=== PATIENT | female | born 1980 | race Caucasian/White ===

== ENCOUNTER 2019-11-12 16:16 | Outpatient (BNVA) | payer MEDICAID, SELFPAY | END 2019-11-12 17:00 | PROVIDERS: Family Provider Family Medicine; PCP Family Medicine; Visit Provider Social Worker Clinical | DX: F40.01 Agoraphobia with panic disorder (principal); F43.12 Post-traumatic stress disorder, chronic | CPT/HCPCS: 90834 ==

== ENCOUNTER → 2019-12-04 16:45 | Outpatient (BNVA) | payer MEDICAID, SELFPAY | PROVIDERS: Family Provider Family Medicine; PCP Family Medicine; Visit Provider Nurse Practitioner | DX: J02.9 Acute pharyngitis, unspecified (principal) | CPT/HCPCS: 87081; 87880 ==

== ENCOUNTER → 2019-12-05 15:15 | Outpatient (BNVA) | payer MEDICAID, SELFPAY | PROVIDERS: Family Provider Family Medicine; PCP Family Medicine; Visit Provider Social Worker Clinical | DX: F40.01 Agoraphobia with panic disorder (principal); F43.12 Post-traumatic stress disorder, chronic | CPT/HCPCS: 90834 ==

== ENCOUNTER 2019-12-25 11:35 | Outpatient (CLI) | payer MEDICAID, SELFPAY ==
--- NOTE | 2019-12-25 11:45 | XRR_ITS ---
PROCEDURE INFORMATION: Exam: XR Lumbosacral Spine, 2 or 3 Views Exam date and time: 12/25/2019 12:25 PM Age: 39 years old Clinical indication: Low back pain; Additional info: Chronic low back pain TECHNIQUE: Imaging protocol: XR of the lumbosacral spine, 2 or 3 views. COMPARISON: No relevant prior studies available. FINDINGS: Vertebrae: Normal. No acute fracture. Normal alignment. Disc heights well maintained. Soft tissues: Normal. XR/XR lumbar spine 2-3V* [id number] IMPRESSION: Negative lumbar spine x-rays.
== END 2019-12-25 11:36 | disposition home or self-care (01) ==
LOC: RAD 11:41
PROVIDERS: Family Provider Family Medicine; PCP Family Medicine; Visit Provider Family Medicine
DX: M54.5 Low back pain (principal); G89.29 Other chronic pain
CPT/HCPCS: 72100

== ENCOUNTER → 2020-01-03 14:57 | Outpatient (BNVA) | payer MEDICAID, SELFPAY | PROVIDERS: Family Provider Family Medicine; PCP Family Medicine; Visit Provider Nurse Practitioner Psychiatric/Mental Health | DX: F43.12 Post-traumatic stress disorder, chronic (principal); F40.01 Agoraphobia with panic disorder; F17.210 Nicotine dependence, cigarettes, uncomplicated | CPT/HCPCS: 99214 ==

== ENCOUNTER → 2020-01-31 07:30 | Outpatient (BNVA) | payer MEDICAID, SELFPAY | PROVIDERS: Family Provider Family Medicine; PCP Family Medicine; Visit Provider Nurse Practitioner Psychiatric/Mental Health | DX: F43.12 Post-traumatic stress disorder, chronic (principal); F40.01 Agoraphobia with panic disorder; F17.210 Nicotine dependence, cigarettes, uncomplicated | CPT/HCPCS: 99213 ==

== ENCOUNTER → 2020-02-03 09:40 | Outpatient (BNVA) | payer MEDICAID, SELFPAY | PROVIDERS: Family Provider Family Medicine; PCP Family Medicine; Visit Provider Counselor Professional | DX: F40.01 Agoraphobia with panic disorder (principal); F43.12 Post-traumatic stress disorder, chronic; F17.210 Nicotine dependence, cigarettes, uncomplicated | CPT/HCPCS: 90834 ==

== ENCOUNTER → 2020-02-13 08:17 | Outpatient (BNVA) | payer MEDICAID, SELFPAY | PROVIDERS: Family Provider Family Medicine; PCP Family Medicine; Visit Provider Counselor Professional | DX: F17.210 Nicotine dependence, cigarettes, uncomplicated (principal); F40.01 Agoraphobia with panic disorder; F43.12 Post-traumatic stress disorder, chronic | CPT/HCPCS: 90834 ==

== ENCOUNTER → 2020-02-26 08:28 | Outpatient (BNVA) | payer MEDICAID, SELFPAY | PROVIDERS: Family Provider Family Medicine; PCP Family Medicine; Visit Provider Counselor Professional | DX: F17.210 Nicotine dependence, cigarettes, uncomplicated (principal); F40.01 Agoraphobia with panic disorder; F43.12 Post-traumatic stress disorder, chronic | CPT/HCPCS: 90834 ==

== ENCOUNTER → 2020-03-05 08:55 | Outpatient (BNVA) | payer MEDICAID, SELFPAY | PROVIDERS: Family Provider Family Medicine; PCP Family Medicine; Visit Provider Counselor Professional | DX: F17.210 Nicotine dependence, cigarettes, uncomplicated (principal); F40.01 Agoraphobia with panic disorder; F43.12 Post-traumatic stress disorder, chronic | CPT/HCPCS: 90834 ==

== ENCOUNTER → 2020-03-19 08:33 | Outpatient (BNVA) | payer MEDICAID, SELFPAY | PROVIDERS: Family Provider Family Medicine; PCP Family Medicine; Visit Provider Counselor Professional | DX: F17.210 Nicotine dependence, cigarettes, uncomplicated (principal); F40.01 Agoraphobia with panic disorder; F43.12 Post-traumatic stress disorder, chronic | CPT/HCPCS: 90834 ==

== ENCOUNTER → 2020-03-31 08:51 | Outpatient (BNVA) | payer MEDICAID, SELFPAY | PROVIDERS: Family Provider Family Medicine; PCP Family Medicine; Visit Provider Counselor Professional | DX: F40.01 Agoraphobia with panic disorder (principal); F43.12 Post-traumatic stress disorder, chronic | CPT/HCPCS: 90834 ==

== ENCOUNTER → 2020-04-06 09:47 | Outpatient (BNVA) | payer MEDICAID, SELFPAY | PROVIDERS: Family Provider Family Medicine; PCP Family Medicine; Visit Provider Counselor Professional | DX: F17.210 Nicotine dependence, cigarettes, uncomplicated (principal); F40.01 Agoraphobia with panic disorder; F43.12 Post-traumatic stress disorder, chronic | CPT/HCPCS: 90834 ==

== ENCOUNTER → 2020-04-13 08:08 | Outpatient (BNVA) | payer MEDICAID, SELFPAY | PROVIDERS: Family Provider Family Medicine; PCP Family Medicine; Visit Provider Counselor Professional | DX: F40.01 Agoraphobia with panic disorder (principal); F43.12 Post-traumatic stress disorder, chronic | CPT/HCPCS: 90834 ==

== ENCOUNTER → 2020-04-23 14:42 | Outpatient (BNVA) | payer MEDICAID, SELFPAY | PROVIDERS: Family Provider Family Medicine; PCP Family Medicine; Visit Provider Counselor Professional | DX: F43.12 Post-traumatic stress disorder, chronic (principal); F40.01 Agoraphobia with panic disorder; F17.210 Nicotine dependence, cigarettes, uncomplicated | CPT/HCPCS: 90834 ==

== ENCOUNTER → 2020-04-24 08:27 | Outpatient (BNVA) | payer MEDICAID, SELFPAY | PROVIDERS: Family Provider Family Medicine; PCP Family Medicine; Visit Provider Nurse Practitioner Psychiatric/Mental Health | DX: F43.12 Post-traumatic stress disorder, chronic (principal); F40.01 Agoraphobia with panic disorder; F17.210 Nicotine dependence, cigarettes, uncomplicated; F33.1 Major depressive disorder, recurrent, moderate | CPT/HCPCS: 99214 ==

== ENCOUNTER → 2020-04-29 08:17 | Outpatient (BNVA) | payer MEDICAID, SELFPAY | PROVIDERS: Family Provider Family Medicine; PCP Family Medicine; Visit Provider Counselor Professional | DX: F17.210 Nicotine dependence, cigarettes, uncomplicated (principal); F40.01 Agoraphobia with panic disorder; F43.12 Post-traumatic stress disorder, chronic | CPT/HCPCS: 90832 ==

== ENCOUNTER → 2020-05-26 08:19 | Outpatient (BNVA) | payer MEDICAID, SELFPAY | PROVIDERS: Family Provider Family Medicine; PCP Family Medicine; Visit Provider Counselor Professional | DX: F17.210 Nicotine dependence, cigarettes, uncomplicated (principal); F40.01 Agoraphobia with panic disorder; F43.12 Post-traumatic stress disorder, chronic | CPT/HCPCS: 90834 ==

== ENCOUNTER → 2020-05-29 07:37 | Outpatient (BNVA) | payer MEDICAID, SELFPAY | PROVIDERS: Family Provider Family Medicine; PCP Family Medicine; Visit Provider Nurse Practitioner Psychiatric/Mental Health | DX: F43.12 Post-traumatic stress disorder, chronic (principal); F40.01 Agoraphobia with panic disorder; F17.210 Nicotine dependence, cigarettes, uncomplicated | CPT/HCPCS: 99214 ==

== ENCOUNTER → 2020-06-15 09:26 | Outpatient (BNVA) | payer MEDICAID, SELFPAY | PROVIDERS: Family Provider Family Medicine; PCP Family Medicine; Visit Provider Counselor Professional | DX: F17.210 Nicotine dependence, cigarettes, uncomplicated (principal); F40.01 Agoraphobia with panic disorder; F43.12 Post-traumatic stress disorder, chronic | CPT/HCPCS: 90834 ==

== ENCOUNTER → 2020-06-29 10:32 | Outpatient (BNVA) | payer MEDICAID, SELFPAY | PROVIDERS: Family Provider Family Medicine; PCP Family Medicine; Visit Provider Counselor Professional | DX: F43.12 Post-traumatic stress disorder, chronic (principal); F17.210 Nicotine dependence, cigarettes, uncomplicated; F40.01 Agoraphobia with panic disorder | CPT/HCPCS: 90832 ==

== ENCOUNTER → 2020-07-17 08:16 | Outpatient (BNVA) | payer MEDICAID, SELFPAY | PROVIDERS: Family Provider Family Medicine; PCP Family Medicine; Visit Provider Nurse Practitioner Psychiatric/Mental Health | DX: F43.12 Post-traumatic stress disorder, chronic (principal); F40.01 Agoraphobia with panic disorder; F17.210 Nicotine dependence, cigarettes, uncomplicated | CPT/HCPCS: 99213 ==

== ENCOUNTER → 2020-07-21 08:51 | Outpatient (BNVA) | payer MEDICAID, SELFPAY | PROVIDERS: Family Provider Family Medicine; PCP Family Medicine; Visit Provider Counselor Professional | DX: F43.12 Post-traumatic stress disorder, chronic (principal); F40.01 Agoraphobia with panic disorder; F17.210 Nicotine dependence, cigarettes, uncomplicated | CPT/HCPCS: 90834 ==

== ENCOUNTER → 2020-08-11 08:39 | Outpatient (BNVA) | payer MEDICAID, SELFPAY | PROVIDERS: Family Provider Family Medicine; PCP Family Medicine; Visit Provider Counselor Professional | DX: F17.210 Nicotine dependence, cigarettes, uncomplicated (principal); F40.01 Agoraphobia with panic disorder; F43.12 Post-traumatic stress disorder, chronic | CPT/HCPCS: 90834 ==

== ENCOUNTER → 2020-09-01 08:29 | Outpatient (BNVA) | payer MEDICAID, SELFPAY | PROVIDERS: Family Provider Family Medicine; PCP Family Medicine; Visit Provider Counselor Professional | DX: F43.12 Post-traumatic stress disorder, chronic (principal); F40.01 Agoraphobia with panic disorder; F17.210 Nicotine dependence, cigarettes, uncomplicated | CPT/HCPCS: 90834 ==

== ENCOUNTER → 2020-09-16 08:31 | Outpatient (BNVA) | payer MEDICAID, SELFPAY | PROVIDERS: Family Provider Family Medicine; PCP Family Medicine; Visit Provider Counselor Professional | DX: F43.12 Post-traumatic stress disorder, chronic (principal); F40.01 Agoraphobia with panic disorder; F17.210 Nicotine dependence, cigarettes, uncomplicated | CPT/HCPCS: 90832 ==

== ENCOUNTER → 2020-09-28 08:44 | Outpatient (BNVA) | payer MEDICAID, SELFPAY | PROVIDERS: Family Provider Family Medicine; PCP Family Medicine; Visit Provider Counselor Professional | DX: F43.12 Post-traumatic stress disorder, chronic (principal); F40.01 Agoraphobia with panic disorder | CPT/HCPCS: 90832 ==

== ENCOUNTER → 2020-10-09 09:29 | Outpatient (BNVA) | payer MEDICAID, SELFPAY | PROVIDERS: Family Provider Family Medicine; PCP Family Medicine; Visit Provider Nurse Practitioner Psychiatric/Mental Health | DX: F43.12 Post-traumatic stress disorder, chronic (principal); F40.01 Agoraphobia with panic disorder; F17.210 Nicotine dependence, cigarettes, uncomplicated | CPT/HCPCS: 99213 ==

== ENCOUNTER → 2020-10-20 14:45 | Outpatient (BNVA) | payer MEDICAID, SELFPAY | PROVIDERS: Family Provider Family Medicine; PCP Family Medicine; Visit Provider Counselor Professional | DX: F43.12 Post-traumatic stress disorder, chronic (principal); F40.01 Agoraphobia with panic disorder; F17.210 Nicotine dependence, cigarettes, uncomplicated | CPT/HCPCS: 90834 ==

== ENCOUNTER → 2020-11-10 09:25 | Outpatient (BNVA) | payer MEDICAID, SELFPAY | PROVIDERS: Family Provider Family Medicine; PCP Family Medicine; Visit Provider Counselor Professional | DX: F40.01 Agoraphobia with panic disorder; F43.12 Post-traumatic stress disorder, chronic; F17.210 Nicotine dependence, cigarettes, uncomplicated | CPT/HCPCS: 90834 ==

== ENCOUNTER → 2020-12-09 08:20 | Outpatient (BNVA) | payer MEDICAID, SELFPAY | PROVIDERS: Family Provider Family Medicine; PCP Family Medicine; Visit Provider Nurse Practitioner Psychiatric/Mental Health | DX: F43.12 Post-traumatic stress disorder, chronic (principal); F40.01 Agoraphobia with panic disorder; F17.210 Nicotine dependence, cigarettes, uncomplicated | CPT/HCPCS: 99214 ==

== ENCOUNTER → 2020-12-16 08:04 | Outpatient (BNVA) | payer MEDICAID, SELFPAY | PROVIDERS: Family Provider Family Medicine; PCP Family Medicine; Visit Provider Counselor Professional | DX: F43.12 Post-traumatic stress disorder, chronic (principal); F40.01 Agoraphobia with panic disorder; F17.210 Nicotine dependence, cigarettes, uncomplicated | CPT/HCPCS: 90834 ==

== ENCOUNTER → 2020-12-30 08:32 | Outpatient (BNVA) | payer MEDICAID, SELFPAY | PROVIDERS: Family Provider Family Medicine; PCP Family Medicine; Visit Provider Counselor Professional | DX: F43.12 Post-traumatic stress disorder, chronic (principal); F40.01 Agoraphobia with panic disorder; F17.210 Nicotine dependence, cigarettes, uncomplicated | CPT/HCPCS: 90832 ==

== ENCOUNTER → 2021-01-20 08:28 | Outpatient (BNVA) | payer MEDICAID, SELFPAY | PROVIDERS: Family Provider Family Medicine; PCP Family Medicine; Visit Provider Counselor Professional | DX: F43.12 Post-traumatic stress disorder, chronic (principal); F40.01 Agoraphobia with panic disorder; F17.210 Nicotine dependence, cigarettes, uncomplicated | CPT/HCPCS: 90832 ==

== ENCOUNTER → 2021-02-05 09:11 | Outpatient (BNVA) | payer MEDICAID, SELFPAY | PROVIDERS: Family Provider Family Medicine; PCP Family Medicine; Visit Provider Nurse Practitioner Psychiatric/Mental Health | DX: F43.12 Post-traumatic stress disorder, chronic (principal); F40.01 Agoraphobia with panic disorder; F17.210 Nicotine dependence, cigarettes, uncomplicated | CPT/HCPCS: 99214 ==

== ENCOUNTER → 2021-02-25 08:09 | Outpatient (BNVA) | payer MEDICAID, SELFPAY | PROVIDERS: Family Provider Family Medicine; PCP Family Medicine; Visit Provider Counselor Professional | DX: F43.12 Post-traumatic stress disorder, chronic (principal); F40.01 Agoraphobia with panic disorder; F17.210 Nicotine dependence, cigarettes, uncomplicated | CPT/HCPCS: 90832 ==

== ENCOUNTER → 2021-03-05 08:03 | Outpatient (BNVA) | payer MEDICAID, SELFPAY | PROVIDERS: Family Provider Family Medicine; PCP Family Medicine; Visit Provider Nurse Practitioner Psychiatric/Mental Health | DX: F43.12 Post-traumatic stress disorder, chronic (principal); F40.01 Agoraphobia with panic disorder; F17.210 Nicotine dependence, cigarettes, uncomplicated | CPT/HCPCS: 99214 ==

== ENCOUNTER → 2021-04-01 09:04 | Outpatient (BNVA) | payer MEDICAID, SELFPAY | PROVIDERS: Family Provider Family Medicine; PCP Family Medicine; Visit Provider Counselor Professional | DX: F43.12 Post-traumatic stress disorder, chronic (principal); F40.01 Agoraphobia with panic disorder; F17.210 Nicotine dependence, cigarettes, uncomplicated | CPT/HCPCS: 90834 ==

== ENCOUNTER → 2021-04-02 08:38 | Outpatient (BNVA) | payer MEDICAID, SELFPAY | PROVIDERS: Family Provider Family Medicine; PCP Family Medicine; Visit Provider Nurse Practitioner Psychiatric/Mental Health | DX: F43.12 Post-traumatic stress disorder, chronic (principal); F40.01 Agoraphobia with panic disorder; F17.210 Nicotine dependence, cigarettes, uncomplicated | CPT/HCPCS: 99214 ==

== ENCOUNTER → 2021-04-29 08:13 | Outpatient (BNVA) | payer MEDICAID, SELFPAY | PROVIDERS: Family Provider Family Medicine; PCP Family Medicine; Visit Provider Counselor Professional | DX: F43.12 Post-traumatic stress disorder, chronic (principal); F40.01 Agoraphobia with panic disorder; F17.200 Nicotine dependence, unspecified, uncomplicated | CPT/HCPCS: 90834 ==

== ENCOUNTER → 2021-05-04 07:47 | Outpatient (BNVA) | payer MEDICAID, SELFPAY | PROVIDERS: Family Provider Family Medicine; PCP Family Medicine; Visit Provider Nurse Practitioner Psychiatric/Mental Health | DX: F43.12 Post-traumatic stress disorder, chronic (principal); F40.01 Agoraphobia with panic disorder; F17.210 Nicotine dependence, cigarettes, uncomplicated | CPT/HCPCS: 99214 ==

== ENCOUNTER → 2021-05-17 07:31 | Outpatient (BNVA) | payer MEDICAID, SELFPAY | PROVIDERS: Family Provider Family Medicine; PCP Family Medicine; Visit Provider Counselor Professional | DX: F43.12 Post-traumatic stress disorder, chronic (principal); F40.01 Agoraphobia with panic disorder; F17.210 Nicotine dependence, cigarettes, uncomplicated | CPT/HCPCS: 90832 ==

== ENCOUNTER → 2021-06-04 07:30 | Outpatient (BNVA) | payer MEDICAID, SELFPAY | PROVIDERS: Family Provider Family Medicine; PCP Family Medicine; Visit Provider Counselor Professional | DX: F40.01 Agoraphobia with panic disorder (principal); F43.12 Post-traumatic stress disorder, chronic; F17.210 Nicotine dependence, cigarettes, uncomplicated | CPT/HCPCS: 90832 ==

== ENCOUNTER → 2021-07-06 07:51 | Outpatient (BNVA) | payer MEDICAID, SELFPAY | PROVIDERS: Family Provider Family Medicine; PCP Family Medicine; Visit Provider Counselor Professional | DX: F40.01 Agoraphobia with panic disorder (principal); F43.12 Post-traumatic stress disorder, chronic; F17.210 Nicotine dependence, cigarettes, uncomplicated | CPT/HCPCS: 90832 ==

== ENCOUNTER → 2021-07-12 08:20 | Outpatient (BNVA) | payer MEDICAID, SELFPAY | PROVIDERS: Family Provider Family Medicine; PCP Family Medicine; Visit Provider Counselor Professional | DX: F40.01 Agoraphobia with panic disorder (principal); F43.12 Post-traumatic stress disorder, chronic; F17.210 Nicotine dependence, cigarettes, uncomplicated | CPT/HCPCS: 90834 ==

== ENCOUNTER → 2021-07-19 08:26 | Outpatient (BNVA) | payer MEDICAID, SELFPAY | PROVIDERS: Family Provider Family Medicine; PCP Family Medicine; Visit Provider Counselor Professional | DX: F40.01 Agoraphobia with panic disorder (principal); F43.12 Post-traumatic stress disorder, chronic; F17.210 Nicotine dependence, cigarettes, uncomplicated | CPT/HCPCS: 90834 ==

== ENCOUNTER → 2021-07-27 07:50 | Outpatient (BNVA) | payer MEDICAID, SELFPAY | PROVIDERS: Family Provider Family Medicine; PCP Family Medicine; Visit Provider Nurse Practitioner Psychiatric/Mental Health | DX: F43.12 Post-traumatic stress disorder, chronic (principal); F40.01 Agoraphobia with panic disorder; F17.210 Nicotine dependence, cigarettes, uncomplicated | CPT/HCPCS: 99214 ==

== ENCOUNTER → 2021-08-04 07:34 | Outpatient (BNVA) | payer MEDICAID, SELFPAY | PROVIDERS: Family Provider Family Medicine; PCP Family Medicine; Visit Provider Counselor Professional | DX: F43.12 Post-traumatic stress disorder, chronic (principal); F40.01 Agoraphobia with panic disorder; F17.210 Nicotine dependence, cigarettes, uncomplicated | CPT/HCPCS: 90832 ==

== ENCOUNTER → 2021-08-18 07:51 | Outpatient (BNVA) | payer MEDICAID, SELFPAY | PROVIDERS: Family Provider Family Medicine; PCP Family Medicine; Visit Provider Counselor Professional | DX: F43.12 Post-traumatic stress disorder, chronic (principal); F40.01 Agoraphobia with panic disorder; F17.210 Nicotine dependence, cigarettes, uncomplicated | CPT/HCPCS: 90832 ==

== ENCOUNTER → 2021-09-09 07:37 | Outpatient (BNVA) | payer MEDICAID, SELFPAY | PROVIDERS: Family Provider Family Medicine; PCP Family Medicine; Visit Provider Counselor Professional | DX: F43.12 Post-traumatic stress disorder, chronic (principal); F17.210 Nicotine dependence, cigarettes, uncomplicated; F40.01 Agoraphobia with panic disorder | CPT/HCPCS: 90832 ==

== ENCOUNTER → 2021-09-14 07:58 | Outpatient (BNVA) | payer MEDICAID, SELFPAY | PROVIDERS: Family Provider Family Medicine; PCP Family Medicine; Visit Provider Nurse Practitioner Psychiatric/Mental Health | DX: F43.12 Post-traumatic stress disorder, chronic (principal); F40.01 Agoraphobia with panic disorder; F17.210 Nicotine dependence, cigarettes, uncomplicated | CPT/HCPCS: 99214 ==

== ENCOUNTER → 2021-10-06 07:45 | Outpatient (BNVA) | payer MEDICAID, SELFPAY | PROVIDERS: Family Provider Family Medicine; PCP Family Medicine; Visit Provider Counselor Professional | DX: F43.12 Post-traumatic stress disorder, chronic (principal); F17.210 Nicotine dependence, cigarettes, uncomplicated; F40.01 Agoraphobia with panic disorder | CPT/HCPCS: 90834 ==

== ENCOUNTER → 2021-10-19 08:25 | Outpatient (BNVA) | payer MEDICAID, SELFPAY | PROVIDERS: Family Provider Family Medicine; PCP Family Medicine; Visit Provider Nurse Practitioner Psychiatric/Mental Health | DX: F43.12 Post-traumatic stress disorder, chronic (principal); F40.01 Agoraphobia with panic disorder; F17.210 Nicotine dependence, cigarettes, uncomplicated | CPT/HCPCS: 99214 ==

== ENCOUNTER → 2021-10-27 07:59 | Outpatient (BNVA) | payer MEDICAID, SELFPAY | PROVIDERS: Family Provider Family Medicine; PCP Family Medicine; Visit Provider Counselor Professional | DX: F43.12 Post-traumatic stress disorder, chronic (principal); F40.01 Agoraphobia with panic disorder; F17.210 Nicotine dependence, cigarettes, uncomplicated | CPT/HCPCS: 90834 ==

== ENCOUNTER → 2021-11-17 08:02 | Outpatient (BNVA) | payer MEDICAID, SELFPAY | PROVIDERS: Family Provider Family Medicine; PCP Family Medicine; Visit Provider Counselor Professional | DX: F43.12 Post-traumatic stress disorder, chronic (principal); F40.01 Agoraphobia with panic disorder; F17.210 Nicotine dependence, cigarettes, uncomplicated | CPT/HCPCS: 90832 ==

== ENCOUNTER → 2021-12-07 08:13 | Outpatient (BNVA) | payer MEDICAID, SELFPAY | PROVIDERS: Family Provider Family Medicine; PCP Family Medicine; Visit Provider Nurse Practitioner Psychiatric/Mental Health | DX: F43.12 Post-traumatic stress disorder, chronic (principal); F40.01 Agoraphobia with panic disorder; F17.210 Nicotine dependence, cigarettes, uncomplicated | CPT/HCPCS: 99214 ==

== ENCOUNTER → 2021-12-13 09:22 | Outpatient (BNVA) | payer MEDICAID, SELFPAY | PROVIDERS: Family Provider Family Medicine; PCP Family Medicine; Visit Provider Counselor Professional | DX: F43.12 Post-traumatic stress disorder, chronic (principal); F40.01 Agoraphobia with panic disorder; F17.210 Nicotine dependence, cigarettes, uncomplicated | CPT/HCPCS: 90832 ==

== ENCOUNTER → 2022-01-10 08:35 | Outpatient (BNVA) | payer MEDICAID, SELFPAY | PROVIDERS: Family Provider Family Medicine; PCP Family Medicine; Visit Provider Counselor Professional | DX: F43.12 Post-traumatic stress disorder, chronic (principal); F40.01 Agoraphobia with panic disorder; F17.210 Nicotine dependence, cigarettes, uncomplicated | CPT/HCPCS: 90834 ==

== ENCOUNTER → 2022-02-01 15:32 | Outpatient (BNVA) | payer MEDICAID, SELFPAY | PROVIDERS: Family Provider Family Medicine; PCP Family Medicine; Visit Provider Nurse Practitioner Psychiatric/Mental Health | DX: F43.12 Post-traumatic stress disorder, chronic (principal); F40.01 Agoraphobia with panic disorder; F17.210 Nicotine dependence, cigarettes, uncomplicated | CPT/HCPCS: 99214 ==

== ENCOUNTER → 2022-02-03 08:16 | Outpatient (BNVA) | payer MEDICAID, SELFPAY | PROVIDERS: Family Provider Family Medicine; PCP Family Medicine; Visit Provider Counselor Professional | DX: F43.12 Post-traumatic stress disorder, chronic (principal); F40.01 Agoraphobia with panic disorder; F17.210 Nicotine dependence, cigarettes, uncomplicated | CPT/HCPCS: 90832 ==

== ENCOUNTER → 2022-03-17 07:27 | Outpatient (BNVA) | payer MEDICAID, SELFPAY | PROVIDERS: Family Provider Family Medicine; PCP Family Medicine; Visit Provider Counselor Professional | DX: F43.12 Post-traumatic stress disorder, chronic (principal); F40.01 Agoraphobia with panic disorder; F17.210 Nicotine dependence, cigarettes, uncomplicated | CPT/HCPCS: 90832 ==

== ENCOUNTER → 2022-04-12 08:19 | Outpatient (BNVA) | payer MEDICAID, SELFPAY | PROVIDERS: Family Provider Family Medicine; PCP Family Medicine; Visit Provider Counselor Professional | DX: F43.12 Post-traumatic stress disorder, chronic (principal); F40.01 Agoraphobia with panic disorder; F17.210 Nicotine dependence, cigarettes, uncomplicated | CPT/HCPCS: 90832 ==

== ENCOUNTER 2022-07-21 08:36 | Outpatient (CLI) | payer MEDICAID, SELFPAY ==
--- NOTE | 2022-07-21 09:09 | MR_ITS ---
WS: [id number] MRI LUMBAR SPINE NONCONTRAST HISTORY: LOW BACK PAIN/LOWER EXTREMITY WEAKNESS COMPARISON: None available. TECHNIQUE: Sagittal and axial multisequence imaging is submitted. Normal lumbar alignment with no compression fractures or marrow edema. Disc spaces and vertebral body heights are well-preserved. Conus terminates normally at L1. L1-L2: No stenosis. Mild ligamentum flavum hypertrophy. L2-L3: Mild ligamentum flavum and bilateral facet joint arthritis. Very small LEFT foraminal disc pro trusion. No stenosis. L3-L4: Moderate bilateral ligamentum flavum and facet arthritis. Mild disc bulging. Small amount of f luid in the facet joints. No significant stenosis. L4-L5: Mild disc bulging with moderate ligamentum flavum and facet arthritis. No significant stenosis . Very mild bilateral foraminal narrowing. Fluid in the facet joints bilaterally. L5-S1: Mild annular disc bulging with ligamentum flavum and facet arthritis. Fluid in the facet joint s. Very mild bilateral foraminal narrowing, LEFT greater than RIGHT. MR/MR lumbar spine wo con* [id number] IMPRESSION: 1. No high-grade central or foraminal stenosis. 2. Multilevel mild to moderate facet joint arthritis and ligamentum flavum hyp ertrophy. Most significant at L3-4 and L4-5. 3. Bowel bilateral foraminal narrowing at L4-5 and L5-S1. 4. Very shallow LEFT foraminal disc protrusion at L2-3 with no stenosis.
== END 2022-07-21 08:37 | disposition home or self-care (01) ==
PROVIDERS: PCP Nurse Practitioner Family; Visit Provider Nurse Practitioner Family
DX: R53.1 Weakness (principal); M51.26 Other intervertebral disc displacement, lumbar region; M47.816 Spondylosis without myelopathy or radiculopathy, lumbar region
CPT/HCPCS: 72148

== ENCOUNTER 2023-01-27 13:50 | Outpatient (CLI) | payer MEDICAID, SELFPAY ==
--- NOTE | 2023-01-27 14:05 | US_ITS ---
WS: [id number] US pelv w/transvag [id number] HISTORY: DYSMENORRHEA COMPARISON: 01/30/2007. Quality is limited by body habitus. Uterus: 7.4 cm x 4.9 cm x 4.9 cm. Normal size retroverted uterus. No fibroid or mass identified. Lobulated contour of the uterus. No fi broid is identified. Endometrium: 1.5 cm. Endometrium is slightly lobular and heterogeneous. No increased vascularity or m ass identified. Right ovary: 3.3 cm x 2.4 cm x 3.2 cm. Complex follicle or collapsing hemorrhagic cyst measures 2.1 x 1.7 x 1.6 cm. No increased vascularity. Normal vascularity to the ovary. Left ovary: 2.8 cm x 2.2 cm x 2.0 cm. Normal size ovary. There is a small hemorrhagic cyst or complex follicle measuring 2.3 x 1.6 x 1.6 cm. No solid mass. No free fluid. US/US pelv w/transvag [id number] IMPRESSION: 1. Limited evaluation due to patient's body habitus. 2. Endometrium is mildly heterogeneous and top normal size. No discrete mass i dentified. Suggest short-term interval follow-up after 2-3 menstrual cycles to be sure the endometrium is normal. 3. Small bilateral complex ovarian follicles or collapsing hemorrhagic cysts.
== END 2023-01-27 13:51 | disposition home or self-care (01) ==
PROVIDERS: PCP Nurse Practitioner Family; Visit Provider Nurse Practitioner Family
DX: N94.6 Dysmenorrhea, unspecified (principal); N83.202 Unspecified ovarian cyst, left side; N83.201 Unspecified ovarian cyst, right side
CPT/HCPCS: 76830; 76856

== ENCOUNTER → 2023-05-17 15:30 | Outpatient (BNVA) | payer MEDICAID, SELFPAY | PROVIDERS: PCP Nurse Practitioner Family; Referring Provider Nurse Practitioner Family; Visit Provider Nurse Practitioner Women's Health | DX: N93.9 Abnormal uterine and vaginal bleeding, unspecified (principal) | CPT/HCPCS: 82670; 83001; 85025 ==

== ENCOUNTER → 2023-06-08 10:15 | Outpatient (BNVA) | payer MEDICAID, SELFPAY | PROVIDERS: PCP Nurse Practitioner Family; Visit Provider Nurse Practitioner Women's Health | DX: N93.9 Abnormal uterine and vaginal bleeding, unspecified (principal) | CPT/HCPCS: 76830 ==

== ENCOUNTER → 2023-06-15 14:00 | Outpatient (BNVA) | payer MEDICAID, SELFPAY | PROVIDERS: PCP Nurse Practitioner Family; Visit Provider Nurse Practitioner Women's Health | DX: N93.9 Abnormal uterine and vaginal bleeding, unspecified (principal) | CPT/HCPCS: 88305 ==

== ENCOUNTER → 2023-09-26 13:06 | Outpatient (BNVA) | payer MEDICAID, SELFPAY | PROVIDERS: PCP Nurse Practitioner Family; Visit Provider Nurse Practitioner Family | DX: J02.9 Acute pharyngitis, unspecified (principal); R50.9 Fever, unspecified; J06.9 Acute upper respiratory infection, unspecified | CPT/HCPCS: 87880 ==

== ENCOUNTER → 2023-10-07 10:59 | Outpatient (BNVA) | payer MEDICAID, SELFPAY | PROVIDERS: PCP Nurse Practitioner Family; Visit Provider Emergency Medicine | DX: R50.9 Fever, unspecified (principal); R52 Pain, unspecified; U07.1 COVID-19 | CPT/HCPCS: 87400; 87426 ==

== ENCOUNTER → 2024-01-02 08:02 | Outpatient (BNVA) | payer MEDICAID, SELFPAY | PROVIDERS: PCP Nurse Practitioner Family; Visit Provider Nurse Practitioner Women's Health | DX: R93.89 Abnormal findings on diagnostic imaging of other specified body structures (principal) | CPT/HCPCS: 76830 ==

== ENCOUNTER 2024-03-01 14:58 | Outpatient (CLI) | payer MEDICAID, SELFPAY ==
--- NOTE | 2024-03-01 15:15 | MRR_ITS ---
PROCEDURE INFORMATION: Exam: MR Pelvis Without Contrast Exam date and time: 03/01/2024 3:16 PM Age: 43 years old Clinical indication: Menstruation abnormalities; Irregular menstruation; Patient HX: Abnormal uterine and vaginal bleeding/despite 7 months of suppressive therapy; Additional info: N93.9 - abnormal uterine and vaginal bleeding, unspecified, despite 7 months of suppressive therapy TECHNIQUE: Imaging protocol: Magnetic resonance imaging of the pelvis without contrast. COMPARISON: US transvaginal [id number] 01/02/2024 8:07 AM FINDINGS: Intraperitoneal space: No free fluid. Urinary bladder: Bladder is unremarkable. Reproductive: There is prominent endometrial thickening with microcysts involving the lower uterine segment and cervical canal. The junctional zone measures 13 mm here. A 1 cm cervical cyst is also noted. The remainder of the endometrium is normal in thickness and appearance. I see no uterine mass. Bones/joints: See Reproductive finding. Soft tissues: Unremarkable. MR/MR pelvis wo con* [id number] IMPRESSION: Findings suggesting adenomyosis of the lower uterine segment
== END 2024-03-01 14:59 | disposition home or self-care (01) ==
LOC: RAD 14:59
PROVIDERS: PCP Nurse Practitioner Family; Visit Provider Nurse Practitioner Women's Health
DX: N93.9 Abnormal uterine and vaginal bleeding, unspecified (principal); R93.89 Abnormal findings on diagnostic imaging of other specified body structures; N88.8 Other specified noninflammatory disorders of cervix uteri
CPT/HCPCS: 72195

== ENCOUNTER → 2024-04-12 13:13 | Outpatient (BNVA) | payer MEDICAID, SELFPAY | PROVIDERS: PCP Nurse Practitioner Family; Visit Provider Obstetrics & Gynecology | DX: N80.03 Adenomyosis of the uterus (principal) | CPT/HCPCS: 82670; 84146 ==

== ENCOUNTER → 2024-06-17 07:58 | Outpatient (BNVA) | payer MEDICAID, SELFPAY | PROVIDERS: PCP Nurse Practitioner Family; Visit Provider Obstetrics & Gynecology | DX: Z01.89 Encounter for other specified special examinations (principal) | CPT/HCPCS: 80053; 85025 ==

== ENCOUNTER → 2024-06-25 06:00 | Day surgery (SDC) | payer MEDICAID, SELFPAY ==
--- NOTE | 2024-06-17 09:45 | ANES.PREANE2 ---
Pre-Anesthetic Assessment Height/Weight: Height 1.68 m Operation Date: 06/25/24 07:00 Proposed Procedures p Total Vaginal Hysterectomy 00828, R10.2 N80.03, N93.9(Not Applicable) - Kam Haines MD Familial anesthetic complications: Patient has thyroid cancer and it was very large - It extended [address] and [address] and down into her chest as well. She had surgery at [facility] and but they were only able to get half out and before her bleeding was too immense and the surgery had to stop. She states shes had radiation and chemo and this hasn't shrunk the thyroid and her inspector government property told her she'd need a smaller ETT because its narrowing her airway. We will need imaging of the neck and airway clearance from inspector government property or ENT Social Tobacco and No alcohol Exam alert, oriented x 3, clear to auscultation bilaterally and regular rate & rhythm Pulmonary Shortness of Breath GI Gastroesophageal Reflux Disease Metabolic Diabetes Mellitus, Hyperlipidemia, Morbid Obesity and Thyroid Disease Anesthetic Plan ASA status: 3 Anesthesia: General Risk of > 500 ml blood loss (7ml/kg in children): Yes, adequate IV access and fluids planned Medications/Allergies Home Medications Medication Instructions Recorded Confirmed Last Taken Type cetirizine 10 mg tablet (Zyrtec) 10 mg PO DAILY 12/04/19 06/17/24 06/17/24 History multivitamin with minerals-folic 1 tab PO DAILY 01/03/20 06/17/24 06/17/24 History acid 200 mcg chewable tablet (One-A-Day Women VitaCraves) omeprazole 20 mg capsule,delayed 20 mg PO DAILY 04/23/20 06/17/24 06/17/24 History release metformin 1,000 mg tablet 1,000 mg PO BID 07/26/21 06/17/24 06/17/24 History calcium phosphate 200 mg-vitamin 1 tab PO DAILY 08/11/22 06/17/24 06/17/24 History D3 5 mcg (200 unit) chewable tablet estradiol 0.01% (0.1 mg/gram) 1 g vaginal .2-3 times weekly 10/05/23 06/17/24 Unknown Rx vaginal cream (Estrace) #42.5 grams folic acid 1 mg tablet 1 mg PO DAILY 10/07/23 06/17/24 06/17/24 History atorvastatin 10 mg tablet (Lipitor) 20 mg PO DAILY 10/20/23 06/17/24 06/16/24 History melatonin 3 mg tablet 3 mg PO DIRECTED PRN sleep #30 10/20/23 06/17/24 Unknown Rx tabs methimazole 5 mg tablet 7.5 mg PO DAILY 10/20/23 06/17/24 06/17/24 History diazepam 5 mg tablet (Valium) 2.5 mg (1/2 x 5 mg) PO TID anxiety 03/04/24 06/17/24 06/17/24 Rx #45 tabs fluoxetine 40 mg capsule (Prozac) 40 mg PO QAM #90 caps 03/04/24 06/17/24 06/17/24 Rx propranolol 20 mg tablet 20 mg PO TID #270 tabs 03/04/24 06/17/24 06/17/24 Rx fluoxetine 20 mg capsule 20 mg PO .morning #90 caps 04/30/24 06/17/24 06/17/24 Rx naloxone 4 mg/actuation nasal 4 mg intranasal Q2M PRN opioid 04/30/24 06/17/24 Unknown Rx spray (Narcan) overdose #2 ea ibuprofen 800 mg tablet 800 mg PO Q6H 06/17/24 06/17/24 06/08/24 History norethindrone acetate 5 mg tablet 5 mg PO DAILY 06/17/24 06/17/24 06/17/24 History Allergies Allergy/AdvReac Type Severity Reaction Status Date / Time prednisone AdvReac tachycardia Verified 06/17/24 07:51 [facility] Anesthesia Medical History No pertinent past medical history neghx: dvt/pe PCP: Sulema Garces Type 2 diabetes mellitus Psychiatric care Nicotine dependence, cigarettes, uncomplicated Panic disorder with agoraphobia Chronic post-traumatic stress disorder Hyperthyroidism Essential (primary) hypertension Surgical History H/O partial thyroidectomy (~2020) H/O tubal ligation History of D&C s/p SAB Family History Father Diabetes Hyperlipidemia Hypertension Mother Diabetes Hypertension Thyroid disease Grandmother Breast cancer maternal Uterine cancer maternal Thyroid disease maternal Brother Thyroid disease Other Parkinson disease Denies family history of Colon cancer Ovarian cancer Heart disease Stroke Social History Smoking and tobacco/nicotine status: never used tobacco/nicotine Female Reproductive History Date of last menstrual period: 09/12/23 Data Anesthesia Cardiac Studies: No Data to Display
[2024-06-17 09:50] LABS: Basophils % 0.3 %; Eosinophils # 0.3 10^3/uL (0.0-0.8); Eosinophils % 2.8 %; Hematocrit 43.4 % (36-47); Lymphocytes # 2.7 10^3/uL (0.8-4.8); Lymphocytes % 25.7 %; Mean Corpuscular HGB Conc 31.3 g/dL (30-55); Mean Corpuscular Hemoglobin 25.3 pg (27-33); Mean Corpuscular Volume 80.8 fl (85-98); Mean Platelet Volume 10.4 fL (7.4-10.4); Monocytes # 0.6 10^3/uL (0.2-0.9); Monocytes % 5.5 %; Neutrophils # 6.85 10^3/uL (1.8-7.7); Neutrophils % 65.4 %; Nucleated Red Blood Cells % 0 %; Platelet Count 350 10^3/cmm (157-399); Red Blood Count 5.37 10^6/uL (3.85-5.65); Red Cell Distribution Width 16.5 % (12.1-15.1); White Blood Count 10.47 10^3/uL (3.29-11.43)
[2024-06-17 10:14] LABS: Albumin Level 4.3 g/dL (3.5-5.2); Alkaline Phosphatase 70 U/L (35-105); Anion Gap 19.9 (5-19); Aspartate Amino Transferase 24 U/L (0-32); Blood Urea Nitrogen 12 mg/dL (6-20); Calcium 9.2 mg/dL (8.5-10.5); Carbon Dioxide 20 mmol/L (22-29); Chloride 106 mmol/L (98-107); Globulin 3.6 g/dL (1.3-4.6); Glucose 119 mg/dL (65-115); Osmolality Calculated 293 mOsm/kg (285-295); Potassium 4.9 mmol/L (3.5-5.1); Sodium 141 mmol/L (136-145); Total Bilirubin 0.3 mg/dL (0.15-1.2); Total Protein 7.9 g/dL (6.6-8.7)
[2024-06-17 10:24] LABS: Alanine Aminotransferase 9 U/L (0-33)
--- NOTE | 2024-07-11 07:11 | PM.MISC ---
Miscellaneous Note Purpose of Documentation: Test Results Note: Discussed thyroid US read provided by patient with Dr. Swanson, ENT. He has no concerns of difficult airway. May proceed with surgical intervention.
== END ==
LOC: OR 07-03 16:21
PROVIDERS: PCP Nurse Practitioner Family; Visit Provider Obstetrics & Gynecology
DX: Z01.818 Encounter for other preprocedural examination (principal)
CPT/HCPCS: 80053; 85025

== ENCOUNTER 2024-07-30 20:00 | Outpatient (CLI) | payer MEDICAID, SELFPAY | END 2024-07-30 20:01 | disposition home or self-care (01) | LOC: SLEEP 20:22 | PROVIDERS: PCP Nurse Practitioner Family; Visit Provider Nurse Practitioner Psychiatric/Mental Health | DX: G47.33 Obstructive sleep apnea (adult) (pediatric) (principal) | CPT/HCPCS: 95810 ==

== ENCOUNTER 2024-11-26 08:58 | Observation (INO) | payer MEDICAID, SELFPAY ==
--- NOTE | 2024-11-19 16:02 | P.ANESASSM_ITS ---
Pre-Anesthetic Assessment Height/Weight: Height 5 ft 6 in Preop Diagnosis: Endometrial thickening Operation Date: 11/26/24 09:00 Proposed Procedures p Total Vaginal Hysterectomy 08180, R10.2, N80.03, N93.9(Not Applicable) - Kam Haines MD Was Beta Annia taken within 24 hours: N/A Was Clonidine taken within 24 hours: N/A Social Tobacco and No alcohol Exam alert, oriented x 3, clear to auscultation bilaterally and regular rate & rhythm Airway Submandibular: within normal limits Cervical ROM: within normal limits Mallampati: Class III Dentition: false Anesthetic Plan ASA status: 3 Anesthesia: General Other: No prior issues with anesthesia NPO's at midnight prior to surgery Type 2 diabetes on metformin Hypertension on propranolol GERD on omeprazole Current smoker Takes diazepam for anxiety METs greater than 4 Plan for general anesthesia Medications/Allergies Home Medications Medication Instructions Recorded Confirmed Last Taken Type cetirizine 10 mg tablet (Zyrtec) 10 mg PO DAILY 12/04/19 11/19/24 06/17/24 History multivitamin with minerals-folic 1 tab PO DAILY 01/03/20 11/19/24 1 Day Ago History acid 200 mcg chewable tablet ~11/18/24 (One-A-Day Women VitaCraves) omeprazole 20 mg capsule,delayed 20 mg PO DAILY 04/23/20 11/19/24 1 Day Ago History release ~11/18/24 metformin 1,000 mg tablet 1,000 mg PO BID 07/26/21 11/19/24 1 Day Ago History ~11/18/24 calcium 200 mg (as phosphate)-vit 1 tab PO DAILY 08/11/22 11/19/24 1 Day Ago History D3 5 mcg (200 unit) chewable tablet ~11/18/24 folic acid 1 mg tablet 1 mg PO DAILY 10/07/23 11/19/24 1 Day Ago History ~11/18/24 atorvastatin 10 mg tablet (Lipitor) 20 mg PO DAILY 10/20/23 11/19/24 1 Day Ago History ~11/18/24 melatonin 3 mg tablet 3 mg PO DIRECTED PRN sleep #30 10/20/23 11/19/24 1 Day Ago Rx tabs ~11/18/24 naloxone 4 mg/actuation nasal 4 mg intranasal Q2M PRN opioid 04/30/24 11/19/24 Unknown Rx spray (Narcan) overdose #2 ea ibuprofen 800 mg tablet 800 mg PO Q6H 06/17/24 11/19/24 1 Day Ago History ~11/18/24 norethindrone acetate 5 mg tablet 5 mg PO DAILY 06/17/24 11/19/24 1 Day Ago History ~11/18/24 methimazole 5 mg tablet 5 mg PO DAILY 07/02/24 11/19/24 1 Day Ago History ~11/18/24 estradiol 0.01% (0.1 mg/gram) 1 g vaginal .2-3 times weekly 07/29/24 11/19/24 Unknown Rx vaginal cream (Estrace) #42.5 grams diazepam 5 mg tablet (Valium) 2.5 mg (1/2 x 5 mg) PO TID anxiety 10/04/24 11/19/24 1 Day Ago Rx #45 tabs ~11/18/24 propranolol 20 mg tablet 20 mg PO TID #270 tabs 10/04/24 11/19/24 1 Day Ago Rx ~11/18/24 fluoxetine 20 mg capsule 60 mg PO .morning 11/19/24 11/19/24 1 Day Ago History ~11/18/24 Allergies Allergy/AdvReac Type Severity Reaction Status Date / Time prednisone AdvReac tachycardia Verified 11/18/24 11:38 [facility] Anesthesia Medical History No pertinent past medical history neghx: dvt/pe PCP: Sulema Garces Type 2 diabetes mellitus Psychiatric care Nicotine dependence, cigarettes, uncomplicated Panic disorder with agoraphobia Chronic post-traumatic stress disorder Hyperthyroidism Essential (primary) hypertension Surgical History H/O partial thyroidectomy (~2020) H/O tubal ligation History of D&C s/p SAB Family History Father Diabetes Hyperlipidemia Hypertension Mother Diabetes Hypertension Thyroid disease Grandmother Breast cancer maternal Uterine cancer maternal Thyroid disease maternal Brother Thyroid disease Other Parkinson disease Denies family history of Colon cancer Ovarian cancer Heart disease Stroke Social History Smoking and tobacco/nicotine status: never used tobacco/nicotine Data Anesthesia Cardiac Studies: No Data to Display
[2024-11-26] VITALS (18 sets, daily range): BP systolic 96–182; BP diastolic 74–118; PULSE 97–134; RESP 8–20; TEMP 36.6–37.1; O2SAT 91–98; BMI 39.4
[2024-11-26] MEDS: sodium chloride 0.9% 1,000 ML 30 ML IV (06:25)
[2024-11-26] MEDS: scopolamine 1 mg PATCH 1 PATCH TRANSDERMA (06:31)
[2024-11-26 06:37] LABS: Glucose Point of Care 164 mg/dL (70-110)
--- NOTE | 2024-11-26 06:37 | P.ANESUD_ITS ---
Pre-Anesthetic Update Pre-Anesthetic Assessment: Date of Surgery/Procedure: 11/26/24 Preop Carla gnosis: AUB, Dyspareunia, pelvic pain Proposed Procedure: Operation Date: 11/26/24 07:00 Proposed Procedures p Total Vaginal Hysterectomy 27029, R10.2, N80.03, N93.9(Not Applicable) - Kam Haines MD Any changes to Pre-Anesthetic Assessment?: No Last Intake: Intake Last Liquid Date 11/25/24 Last Liquid Time 20:00 Last Solid Date 11/25/24 Last Solid Time 20:00 Vitals: Temperature 98.3 F 11/26/24 06:10 Temperature Source Temporal Artery S can 11/26/24 06:10 Pulse Rate 117 H 11/26/24 06:10 Respiratory Rate 20 H 11/26/24 06:10 Blood Pressure 182/86 11/26/24 06:10 Blood Pressure Clover n 118 11/26/24 06:10 Pulse Oximetry 98 11/26/24 06:10 Oxygen Delivery Me thod Room Air 11/26/24 06:11 Exam: Pre-Anes Outpt Exam: alert, oriented x 3, clear to auscultation bilaterally and regular rate & rhythm Cardiac Studies: No Data to Display
[2024-11-26 06:40] LABS: Basophils % 0.3 %; Eosinophils # 0.4 10^3/uL (0.0-0.8); Eosinophils % 3.7 %; Hematocrit 44.2 % (36-47); Lymphocytes # 3.3 10^3/uL (0.8-4.8); Lymphocytes % 29.5 %; Mean Corpuscular HGB Conc 32.4 g/dL (30-55); Mean Corpuscular Hemoglobin 27.1 pg (27-33); Mean Corpuscular Volume 83.7 fl (85-98); Mean Platelet Volume 10.3 fL (7.4-10.4); Monocytes # 0.6 10^3/uL (0.2-0.9); Monocytes % 4.9 %; Neutrophils # 6.94 10^3/uL (1.8-7.7); Neutrophils % 61.2 %; Nucleated Red Blood Cells % 0 %; Platelet Count 329 10^3/cmm (157-399); Red Blood Count 5.28 10^6/uL (3.85-5.65); Red Cell Distribution Width 14.1 % (12.1-15.1); White Blood Count 11.34 10^3/uL (3.29-11.43)
[2024-11-26] MEDS: ceFAZolin 3,000 MG in sodium chloride 0.9% (100 ml) 100 ML 200 MG IV (06:42)
[2024-11-26 06:55] LABS: Alanine Aminotransferase 17 U/L (0-33); Albumin Level 4.2 g/dL (3.5-5.2); Alkaline Phosphatase 75 U/L (35-105); Anion Gap 21.3 (5-19); Aspartate Amino Transferase 37 U/L (0-32); Blood Urea Nitrogen 11 mg/dL (6-20); Calcium 8.7 mg/dL (8.5-10.5); Carbon Dioxide 19 mmol/L (22-29); Chloride 104 mmol/L (98-107); Globulin 3.2 g/dL (1.3-4.6); Glomerular Filtration Rate 77.6 mL/min (90-130); Glucose 224 mg/dL (65-115); Osmolality Calculated 296 mOsm/kg (285-295); Potassium 4.3 mmol/L (3.5-5.1); Sodium 140 mmol/L (136-145); Total Bilirubin 0.4 mg/dL (0.15-1.2); Total Protein 7.4 g/dL (6.6-8.7)
--- NOTE | 2024-11-26 06:59 | W.PM.OPSUD ---
Surgery/Procedure H&P Update DATE OF PROCEDURE: November 26, 2024 DATE H&P PERFORMED: 11/18/24 H&P UPDATE INFORMATION: I have reviewed H&P completed within last 30 days, I have examined patient prior to procedure and No changes to prior documentation PREOP DIAGNOSIS: AUB, Dyspareunia, pelvic pain PLANNED PROCEDURE: Operation Date: 11/26/24 07:00 Proposed Procedures p Total Vaginal Hysterectomy 63179, R10.2, N80.03, N93.9(Not Applicable) - Kam Haines MD
[2024-11-26] MEDS: lidocaine-epi 2% PF 1:200,000 20 mL SDV INJECTION (07:49)
--- NOTE | 2024-11-26 08:29 | PC.NURSE ---
Prior to procedure, after being put under anesthesia, patient had a small bowel movement. Patient cleaned in standard fashion.
--- NOTE | 2024-11-26 08:42 | W.PM.BPON ---
Date of Procedure: 11/26/24 Surgeon: Kam Haines MD Electrical Systems Designer(s): Dr. Emeka Thomas Procedure(s) performed: Total vaginal hysterectomy Findings of the procedure(s): Enlarged uterus with Essure implant Estimated blood loss: 20 Specimen(s) removed: Uterus and left the right fallopian tubes Post-operative diagnosis: Status post total vaginal hysterectomy with bilateral salpingectomy
--- NOTE | 2024-11-26 08:45 | PM.OP ---
Operative Report Date of procedure: November 26, 2024 Pre-op diagnosis: Abnormal uterine bleeding unresponsive medical manage Post-op diagnosis: same Post-op findings: Essure implant Procedure done: Total vaginal hysterectomy Bilateral salpingectomy Specimens removed/disposition: Uterus Left the right fallopian tubes Surgeon: Kam Haines MD Estimated blood loss (mL): 20 IV fluids (mL): 800 Urine output (mL): 150 Findings: Essure implant Procedure: After informed consent and risks, benefits, indications and alternatives reviewed with the patient was taken to the operating room. The patient was placed in dorsal lithotomy position prepped, and draped in the usual sterile fashion. The pre-procedure timeout verifying the correct patient, procedure, site and side, could not requirements was performed and acknowledge by the OR team. A Murrell catheter was placed. A Bookwalter vaginal retractor was placed into the vagina in usual manner visualize the cervix. Cervix was grasped with a single tooth tenaculum and circumferentially infiltrated with [2% lidocaine with epinephrine]. Then cervix was circumferentially incised with bovie and the bladder was dissected off the pubovesical cervical fascia anteriorly with a sponge stick and Metzenbaum scissors. The anterior peritoneal reflection was identified and the anterior cul-de-sac was entered sharply with Metzenbaum scissors. The same procedure was performed posteriorly and a posterior colpotomy was made through the posterior cul-de-sac space without difficulty and the posterior blade of the Bookwalter vaginal retractor was advanced posteriorly into the cul-de-sac. At this time, the left and right uterosacral ligaments were isolated and ligated with 0 Vicryl. The LigaSure device was placed over the uterosacral ligaments on either side and was then used in a serial fashion up through the cardinal ligaments bilaterally cross-clamped, cut, and sealed with the LigaSure device. Finally, the uterine arteries were cross-clamped, cut, sealed and ligated with the LigaSure device. Hemostasis was assured. The broad ligaments were then serially clamped, sealed and cut with the LigaSure device on both sides. Excellent hemostasis was visualized. Both cornua were clamped, sealed and cut with the LigaSure device. Then the pedicles were then suture ligated with excellent hemostasis. The uterus was excised and submitted for pathologic evaluation. No other abnormalities were noted in the pelvic cavity. Then the right side Infundibular ligament was identified. The ureter was confirmed along the pelvic side wall and peristalsis was noted. The LigaSure device was then used to clamp, sealed and transcepted the fallopian tube, again being sure to be clear of the ureter. The fallopian tube was removed. The same process was then repeated on the left side. Good hemostasis was assure on both sides. The peritoneum was then closed in a pursestring fashion with 0 Vicryl suture. The vaginal cuff angles were closed with [id number] #0 Vicryl suture on both sides and transfixed with the ipsilateral cardinal and uterosacral ligaments. The remainder of the vaginal cuff was closed with #0 Vicryl in a running locked fashion. At this time, instruments were removed from the vagina at hemostasis assured. Murrell catheter was then placed yielding clear mitzy urine. The patient was taken out of dorsal lithotomy position and awakened from the general anesthesia. The patient tolerated the procedure well and was taken to the PACU recovery room in a stable condition. Sponge, lap, needle and instruments counts were correct x3.
--- NOTE | 2024-11-26 09:35 | ANE.PACU2 ---
Inpatient post-anesthesia follow up: Airway intact: Yes Vital signs: Temperature 98.4 F Pulse Rate 102 Respiratory Rate 16 Blood Pressure 118/76 Pulse Oximetry 96 Oxygen Delivery Me thod Room Air Oxygen Flow Rate 8 Fraction of Inspir ed Oxygen Hydration adequate: Yes Nausea and vomiting: No Pain level: 1 Mental status: Baseline
--- NOTE | 2024-11-26 09:53 | PC.NURSE ---
0934 - Dr Miller notified of pts heart rate at 124 - pt denies chest pain or shortness of breath - pt states she always has a high heart rate ok to transition to OB floor
--- NOTE | 2024-11-26 09:54 | PC.NURSE ---
0944 - accepted into room 9 via GLENDA Magdaleno - BP 140/76 - pulse 122 - 96% - 98.4 temp - no distress noted - skye pad c/d/i no distress noted upon this nurse exiting room
[2024-11-26] MEDS: dextrose 5%-lactated ringers 1,000 ML 125 ML IV ×2 (10:13→22:34)
[2024-11-26] MEDS: diazePAM 5 mg Tablet 2.5 MG PO ×2 (10:14→16:24)
[2024-11-26] MEDS: docusate sodium 100 mg Capsule PO ×2 (10:15→18:51)
[2024-11-26] MEDS: methIMAzole 5 MG Tablet PO (10:16)
[2024-11-26] MEDS: propranolol 20 mg Tablet PO ×2 (10:16→16:24)
[2024-11-26] MEDS: cetirizine 10 mg Tablet PO (10:16)
[2024-11-26] MEDS: ketorolac 30 mg/mL INJ IVP ×3 (10:17→22:34)
[2024-11-26] MEDS: metformin 500 mg Tablet 1000 MG PO (18:51)
[2024-11-26] MEDS: simethicone 80 mg Chew PO (20:31)
[2024-11-26] MEDS: HYDROcodone-acetaminophen 5-325 mg Tablet PO (22:34)
[2024-11-27 05:00] VITALS: BP 127/67; PULSE 105; RESP 18; TEMP 36.5; O2SAT 99
[2024-11-27] MEDS: ketorolac 30 mg/mL INJ IVP (05:07)
--- NOTE | 2024-11-27 05:17 | PC.NURSE ---
Assessed vaginal vault, no post surgical vaginal packing noted.
[2024-11-27 05:43] LABS: Hematocrit 38.2 % (36-47); Mean Corpuscular HGB Conc 31.4 g/dL (30-55); Mean Corpuscular Hemoglobin 27.5 pg (27-33); Mean Corpuscular Volume 87.6 fl (85-98); Mean Platelet Volume 11.2 fL (7.4-10.4); Platelet Count 264 10^3/cmm (157-399); Red Blood Count 4.36 10^6/uL (3.85-5.65); Red Cell Distribution Width 13.9 % (12.1-15.1); White Blood Count 15.04 10^3/uL (3.29-11.43)
--- NOTE | 2024-11-27 09:32 | PM.OBGYDC ---
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 Huggins 43-year-old female with a history of abnormal uterine bleeding unresponsive to medical management admitted for planned total vaginal hysterectomy. Procedure was performed without complication. Overnight observation was uneventful. She is afebrile and hemodynamically stable. Tolerating diet well. Ambulating without difficulty. She was counseled regarding pelvic rest for 6 weeks (no sex, no tampons, no vaginal douches). Return to the emergency room if any fever, increased bleeding or pain. Physical Exam Narrative: GA: Alert and oriented ?3. HEENT: WNL. Heart: Regular rate and rhythm. Lungs: Clear to auscultation bilaterally. Abdomen: Bowel sounds present, nontender. 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 Extremities: No edema, no cyanosis, no calves pain. Urinary Catheter Management: Murrell: Cath Placed During This Visit: yes, but has since been removed by the nurse Reason for Continuing Indwelling Catheter: Decision to DC Catheter Urinary Catheter Date of Insertion: 11/26/24 Urinary Catheter Time of Insertion: 07:31 Date Urinary Catheter Removed: 11/27/24 Time Urinary Catheter Discontinued: 05:17 History History History 4 Term 2 0 Miscarriages/Ectopic 2 Living Children 2 Discharge Data Studies Completed and Pending Pending at discharge Category Date Time Status Pathology: Surgical [PTH] Routine Pth 11/26/24 08:34 Received Laboratory Results WBC 15.04 10^3/uL (3.29-11.43) H 11/27/24 05:15 RBC 4.36 10^6/uL (3.85-5.65) 11/27/24 05:15 Hgb 12.00 g/dL (11.27-16.99) 11/27/24 05:15 Hct 38.2 % (36-47) 11/27/24 05:15 MCV 87.6 fl (85-98) 11/27/24 05:15 MCH 27.5 pg (27-33) 11/27/24 05:15 MCHC 31.4 g/dL (30-55) 11/27/24 05:15 RDW 13.9 % (12.1-15.1) 11/27/24 05:15 Plt Count 264 10^3/cmm (157-399) 11/27/24 05:15 MPV 11.2 fL (7.4-10.4) H 11/27/24 05:15 Neut % (Auto) 61.2 % 11/26/24 06:15 Lymph % (Auto) 29.5 % 11/26/24 06:15 [place] % (Auto) 4.9 % 11/26/24 06:15 Eos % (Auto) 3.7 % 11/26/24 06:15 Baso % (Auto) 0.3 % 11/26/24 06:15 Neut # (Auto) 6.94 10^3/uL (1.8-7.7) 11/26/24 06:15 Lymph # (Auto) 3.3 10^3/uL (0.8-4.8) 11/26/24 06:15 [place] # (Auto) 0.6 10^3/uL (0.2-0.9) 11/26/24 06:15 Eos # (Auto) 0.4 10^3/uL (0.0-0.8) 11/26/24 06:15 Baso # (Auto) 0.0 10^3/uL (0.0-0.1) 11/26/24 06:15 Nucleated RBC % (auto) 0 % 11/26/24 06:15 Nucleated RBCs # 0.0 /100WBC 11/26/24 06:15 Sodium 140 mmol/L (136-145) 11/26/24 06:15 Potassium 4.3 mmol/L (3.5-5.1) 11/26/24 06:15 Chloride 104 mmol/L (98-107) 11/26/24 06:15 Carbon Dioxide 19 mmol/L (22-29) L 11/26/24 06:15 Anion Gap 21.3 (5-19) H 11/26/24 06:15 BUN 11 mg/dL (6-20) 11/26/24 06:15 Creatinine 0.8 mg/dL (0.5-0.9) 11/26/24 06:15 GFR Calculation 77.6 mL/min (90-130) L 11/26/24 06:15 Glucose 224 mg/dL (65-115) H 11/26/24 06:15 POC Glucose 164 mg/dL (70-110) H 11/26/24 06:21 Calculated Osmolality 296 mOsm/kg (285-295) H 11/26/24 06:15 Calcium 8.7 mg/dL (8.5-10.5) 11/26/24 06:15 Total Bilirubin 0.4 mg/dL (0.15-1.2) 11/26/24 06:15 AST 37 U/L (0-32) H 11/26/24 06:15 ALT 17 U/L (0-33) 11/26/24 06:15 Alkaline Phosphatase 75 U/L (35-105) 11/26/24 06:15 Total Protein 7.4 g/dL (6.6-8.7) 11/26/24 06:15 Albumin 4.2 g/dL (3.5-5.2) 11/26/24 06:15 Globulin 3.2 g/dL (1.3-4.6) 11/26/24 06:15 Blood Type O Positive 11/26/24 06:15 Rho(D) Type Rh positive 11/26/24 06:15 Antibody Screen Negative 11/26/24 06:15 Vitals Last Vital Signs Temp 97.7 F 11/27/24 05:00 Pulse 105 H 11/27/24 05:00 Resp 18 11/27/24 05:00 BP 127/67 11/27/24 05:00 Pulse Ox 99 11/27/24 05:00 O2 Del Method Room Air 11/27/24 05:00 O2 Flow Rate 8 11/26/24 09:16 Results Labs OB ([facility]): Blood Type O Positive 11/26/24 Antibody Screen Negative 11/26/24 Hct 38.2 % (36-47) 11/27/24 Hgb 12.00 g/dL (11.27-16.99) 11/27/24 Rho(D) Type Rh positive 11/26/24 Plt Count 264 10^3/cmm (157-399) 11/27/24 FSH 7.1 mIU/mL 05/17/23 Total Estradiol 21.9 pg/mL 04/12/24 Prolactin 18.07 ng/mL (4.8-23.3) 04/12/24 Discharge Plan Discharge Patient Disposition: Home Condition: Stable Prescriptions: New ibuprofen 800 mg tablet 800 mg PO TID PRN (Reason: pain) Qty: 60 0RF hydrocodone-acetaminophen 5-325 mg tablet 1 tab PO Q4H PRN (Reason: pain) Qty: 20 0RF acetaminophen 325 mg capsule 325 mg PO Q4H PRN (Reason: fever or pain) Qty: 60 0RF Continued cetirizine [Zyrtec] 10 mg tablet 10 mg PO DAILY omeprazole 20 mg capsule,delayed release(DR/EC) 20 mg PO DAILY One-A-Day Women VitaCraves 200 mcg tablet,chewable 1 tab PO DAILY Rx Instructions: PO daily; metformin 1,000 mg tablet 1,000 mg PO BID atorvastatin [Lipitor] 10 mg tablet 20 mg PO DAILY calcium phosphate-vitamin D3 200 mg-5 mcg (200 unit) tablet,chewable 1 tab PO DAILY folic acid 1 mg tablet 1 mg PO DAILY naloxone [Narcan] 4 mg/actuation spray,non-aerosol 4 mg intranasal Q2M PRN (Reason: opioid overdose) Qty: 2 3RF Rx Instructions: 1 dose into 1 nostril-alternate nostrils w each dose until help arrives diazepam [Valium] 5 mg tablet 2.5 mg PO TID Qty: 45 3RF Rx Instructions: Take half tablet three times per day propranolol 20 mg tablet 20 mg PO TID Qty: 270 2RF Rx Instructions: Take one tablet three times per day melatonin 3 mg tablet 3 mg PO DIRECTED PRN (Reason: sleep) Qty: 30 1RF Rx Instructions: May take one tablet 30-60 min prior to bedtime as needed for sleep ibuprofen 800 mg tablet 800 mg PO Q6H methimazole 5 mg tablet 5 mg PO DAILY estradiol [Estrace] 0.01 % (0.1 mg/gram) cream 1 g vaginal .2-3 times weekly Qty: 42.5 3RF Rx Instructions: space out doses fluoxetine 20 mg capsule 60 mg PO .morning Qty: 90 4RF Rx Instructions: Take three capsule every morning Discharge Orders: Discharge Order (Routine); Ordered 11/27/24 Ordered By: Kam Haines Referrals: Kam Haines MD [Physician] - 01/02/25 2:45 pm Emily Beauchamp APN, HEATHER [Nurse Practitioner] - 12/13/24 11:00 am Discharge Diet: Usual diet Discharge Activity: Limit activity as instructed Patient Instructions: Acute Wound Care (DC), Opioid Safety (GEN), Hysterectomy (GEN), Vaginal Hysterectomy (GEN), OB Discharge Report, OB Food/Drug Interaction Guide, Opioid Safety, Post Anesthesia Care Activity Restrictions/Additional Instructions: 1. Please call [facility] on next working day to make your post-operative appointment in 2 weeks. 2. Please stay home until you come back to the clinic on first post-hospatilization check up. 3. Please follow instructions on your medications CAREFULLY. 4. If you have abdominal incision, do not cover it unless dressing is necessary because of drainage. OK to shower, but avoid bath. Leave steri-strips until they fall off. If they are still on one week after surgery, you may remove them. 5. If you had vaginal surgery or vaginal repair, Dr. Haines may instruct you to take SITZ bath. 6. Yellow, blood tinged odorous vaginal discharge is usually normal after hysterectomy or vaginal surgeries. 7. No SEXUAL INTERCOURSE, tampons, or douches until you are completely released from the post-operative care. 8. Avoid constipation by eating right and maybe using some Metamucil or Milk of Magnesia. 9. All prescription refills are given during the working hours. Please do no wait till it runs out. Call the clinic at [phone] before your medication runs out. The clinic will get in touch with your doctor to prescribe medications if necessary. 10. Please remain within 40 mile radius from our hospital because emergencies do happen now and then during the post-operative period. 11. If you have stairs at home, take one step at a time slowly and minimize the number of trips. It helps to stay in one floor for the next few days. No lifting except what you can lift by one hand until you are released from the post-operative care. 12. Driving is discouraged until you are well healed. It may be 3-4 weeks before you feel strong enough to drive. You should be able to turn and look through the rear window without pain and you should be able to push the brake pedal very hard without pain before you drive. No fast rules, but SAFETY should be your primary concern. DO NOT drive if you are on sedating medications such as narcotics. 13. Call the clinic (during working hours) to make urgent appointment or go to the Emergency room, if any of the following occurs: i. Vaginal bleeding becomes heavy, more than a period. ii. Incision becomes red and sore, or drains pus. iii. Your TEMPERATURE is over 100.4F or you have chill. iv. IV site becomes red and swollen (a little ``knot?? is usually OK) v. Persistent nausea and vomiting vi. Persistent constipation or diarrhea vii. Rash or allergic reaction to medications. Discharge Attestations POLE INCISOR OPERATOR Time Spent in Discharge Care*: greater than 30 min Coding Level of Care Code Acute Code for Chg Fwd
[2024-11-27] MEDS: methIMAzole 5 MG Tablet PO (09:39)
[2024-11-27] MEDS: cetirizine 10 mg Tablet PO (09:39)
[2024-11-27] MEDS: propranolol 20 mg Tablet PO (09:39)
[2024-11-27] MEDS: pantoprazole DR 40 mg Tablet PO (09:39)
[2024-11-27] MEDS: ibuprofen 800 mg tablet PO (09:40)
[2024-11-27] MEDS: metformin 500 mg Tablet 1000 MG PO (09:40)
[2024-11-27] MEDS: docusate sodium 100 mg Capsule PO (09:40)
[2024-11-27] MEDS: diazePAM 5 mg Tablet 2.5 MG PO (09:41)
[2024-11-27] MEDS: multivitamin therapeutic Tablet 1 TAB PO (09:41)
[2024-11-27 10:48] VITALS: BP 123/64; PULSE 94; RESP 16; TEMP 36.6; O2SAT 97
== END 2024-11-27 10:50 | disposition home or self-care (01) ==
LOC: OBGYN 09:02
PROVIDERS: Admitting Provider Obstetrics & Gynecology; PCP Nurse Practitioner Family; Visit Provider Obstetrics & Gynecology
PROC: (CPT 58262; principal; 2024-11-26 07:00)
PROC: (CPT 58700; 2024-11-26 07:00)
DX: N80.03 Adenomyosis of the uterus (principal); N93.9 Abnormal uterine and vaginal bleeding, unspecified; N87.9 Dysplasia of cervix uteri, unspecified; N88.8 Other specified noninflammatory disorders of cervix uteri; Z79.899 Other long term (current) drug therapy; E11.9 Type 2 diabetes mellitus without complications; E89.0 Postprocedural hypothyroidism; F17.210 Nicotine dependence, cigarettes, uncomplicated; Z79.84 Long term (current) use of oral hypoglycemic drugs; Z80.49 Family history of malignant neoplasm of other genital organs
CPT/HCPCS: 58262; 36415; 36416; 80053; 82962; 85025; 85027; 86850; 86900; 88307; A4216; G0378; J0690; J1100; J1171; J1200; J1885; J2250; J2405; J2704; J3010; J3490; J3535; J7030; J7121

== ENCOUNTER 2024-12-30 14:14 | Outpatient (CLI) | payer MEDICAID, SELFPAY ==
--- NOTE | 2024-12-30 14:15 | MM_ITS ---
WS: [id number] BILATERAL 3D TOMOSYNTHESIS DIGITAL SCREENING MAMMOGRAPHY WITH CAD CLINICAL INFORMATION: SCREENING HISTORY: Screening mammogram. No current complaints. COMPARISON: Baseline TECHNIQUE: Bilateral CC and MLO views. FINDINGS: Scattered fibroglandular densities bilaterally. No suspicious focal mass, asymmetry, calcifications, or architectural distortion. No evidence of malignancy. Scattered diffuse tiny punctate calcifications. MM/MM scr tomosynthesis [id number] IMPRESSION: DENSITY: There are scattered areas of fibroglandular density. BI-RADS: 2 - Benign. FOLLOW UP: 1 Year Follow-up Recommend return to annual screening mammography.
== END 2024-12-30 14:15 | disposition home or self-care (01) ==
PROVIDERS: PCP Nurse Practitioner Family; Visit Provider Nurse Practitioner Family
DX: Z12.31 Encounter for screening mammogram for malignant neoplasm of breast (principal); R92.323 Mammographic fibroglandular density, bilateral breasts
CPT/HCPCS: 77063; 77067

== ENCOUNTER 2025-10-10 10:52 | Outpatient (CLI) | payer OTHER, SELFPAY ==
--- NOTE | 2025-10-10 10:59 | XR_ITS ---
WS: [id number] XR knee RT 1-2V [id number] REASON FOR EXAM: OSTEOARTHRITIS RT LT KNEE FINDINGS: No fracture or focal bone lesion. Joint spaces of the knee are intact and well preserved. XR/XR knee RT 1-2V [id number] IMPRESSION: No significant bone or joint abnormality.
--- NOTE | 2025-10-10 10:59 | XR_ITS ---
WS: [id number] XR knee LT 1-2V [id number] REASON FOR EXAM: OSTEOARTHRITIS RT LT KNEE FINDINGS: No fracture or focal bone lesion. No periosteal reaction or bone erosion. Joint spaces of the knee are intact and well preserved. XR/XR knee LT 1-2V [id number] IMPRESSION: No significant bone or joint abnormality.
--- NOTE | 2025-10-10 10:59 | XR_ITS ---
WS: [id number] XR lumbar spine 2-3V* [id number] REASON FOR EXAM: LUMBAR DDD/OSTEOARTHRITIS FINDINGS: Minimal rotatory levoscoliosis. Minimal straightening of the normal lordosis. No significant vertebral body abnormality. Intervertebral disc spaces are intact and well preserved. No spondylolysis. No significant spondylolisthesis. XR/XR lumbar spine 2-3V* [id number] IMPRESSION: No significant abnormality.
== END 2025-10-10 10:53 | disposition home or self-care (01) ==
LOC: RAD 10:54
PROVIDERS: PCP Nurse Practitioner Family; Visit Provider Family Medicine
DX: M41.9 Scoliosis, unspecified (principal); M51.369 Other intervertebral disc degeneration, lumbar region without mention of lumbar back pain or lower extremity pain; M17.0 Bilateral primary osteoarthritis of knee
CPT/HCPCS: 72100; 73560